=== PATIENT | male | born 1965 | race Caucasian/White ===

== ENCOUNTER 2020-02-22 18:34 | Emergency (ER) | payer OTHER ==
[2020-02-22 20:41] LABS: BUN/CREAT RATIO (CALC) 17.1 RATIO; CREATININE 1.17 mg/dL (0.67-1.17); POTASSIUM 4.3 mmol/L (3.5-5.1)
[2020-02-22] MEDS ORDERED: PERCOCET 5-3251 EACH PO (22:34)
== END 2020-02-22 23:04 | disposition home or self-care (01) ==
LOC: FER 18:34
PROVIDERS: Emergency Medicine
DX: S22.42XA Multiple fractures of ribs, left side, initial encounter for closed fracture (principal); W19.XXXA Unspecified fall, initial encounter; Y92.009 Unspecified place in unspecified non-institutional (private) residence as the place of occurrence of the external cause
CPT/HCPCS: 36415; 71260; 80048; J1885; J3360; Q9967

== ENCOUNTER → 2021-09-11 | Day surgery (SDC) | payer OTHER ==
[~2021-09-11] VITALS: Ht 182.9 cm; Wt 95.2 kg
[~2021-09-11] MED LIST: DAILY VITE1 EACH PO; PERCOCET 5-3251 EACH PO; PRILOSEC20 MG PO; ZYRTEC10 M3 PO
[2021-09-11 08:12] LABS: HCT 48.3 % (42.0-52.0); HGB 16.5 g/dl (13.2-18.0); MCH 30.2 pg (25.0-31.0); MCHC 34.2 g/dL (32.0-36.0); MCV 88.5 fL (78.0-100.0); MPV 10.1 fL (6.0-9.5); RBC 5.46 M/uL (4.70-6.00); RDW 12.5 % (11.5-14.0); WBC 7.9 K/uL (4.0-10.5)
[2021-09-11 08:37] LABS: BILIRUBIN - TOTAL 0.8 mg/dL (0.2-1.0); BUN/CREAT RATIO (CALC) 15.9 RATIO; CREATININE 1.07 mg/dL (0.67-1.17); GLOBULIN (CALCULATION) 2.9 g/dL; TOTAL PROTEIN 6.9 g/dL (6.4-8.2)
== END | disposition home or self-care (01) ==
LOC: FAS 07:34
PROVIDERS: Surgery
DX: K29.70 Gastritis, unspecified, without bleeding (principal); K21.9 Gastro-esophageal reflux disease without esophagitis; F41.9 Anxiety disorder, unspecified
CPT/HCPCS: 36415; 80053; J2250; J2704; J7120